=== PATIENT | female | born 2000 | race Hispanic/Latino ===

== ENCOUNTER 2019-06-28 02:53 | Emergency (ER) | payer OTHER ==
[~2019-06-28] VITALS: Ht 152.4 cm; Wt 79.4 kg
--- OUTSIDE RECORDS SUMMARY | 2019-06-28 02:56 | XMS REPORT ---
Author Author [facility] Address Unknown Phone Unavailable Care Team Providers Care Vp Patient Name Role Phone SARAVANAN ATKINSON PP Unavailable Nani ATKINSON Unavailable Unavailable Payers Payer Name Policy Type Policy Number Effective Date Expiration Date Problems This patient has no known problems. Allergies, Adverse Reactions, Alerts Allergy Name Allergy Type Status Severity Reaction(s) Onset Date Inactive Date Treating Clinician Comments No Known Allergies DA Active U 2018-04-11 00:00:00 No Known Allergies DA Active U 2018-04-02 00:00:00 No Known Allergies DA Active U 2018-03-17 00:00:00 Medications This patient has no known medications. Encounters Start Date/Time End Date/Time Encounter Type Admission Type Attending [facility] Care Department Encounter ID 2016-09-28 12:10:00 2016-09-28 12:10:00 Emergency E [facility] [id number] Results Test Description Test Time Test Comments Text Results Atomic Results Result Comments PLACENTA THIRD TRIMESTER 2018-04-13 18:33:00 RUN DATE: 04/14/18 [facility] PAGE 1 RUN TIME: 1104 Specimen Inquiry RUN USER: INTERFACE PATIENT: BETH DESOUZA LOC: [facility] U #: [id number] AGE/SX: ROOM: [age] RE04/11/18REG DR: Brain Kunz : 89 BED: A DIS: STATUS: ADM IN TLOC: SPEC #: [id number] RECD: 04/11/18 STATUS: MINI NATE #: [id number] ED: 04/11/18- [facility] DR: Brain Kunz MD ENTERED: 04/11/18 SP TYPE: PLACIII OTHR DR: ORDERED: LEVEL V SURGICA CODES: [id number] - PLACENTA, NOS PROCEDURES: LEVEL V SURGICA (Incomplete) TISSUES: PLACENTA, NOS - PLACENTA CLINICAL HISTORY 17 year old, 39+ weeks, , repeat section, GDM (kr) FINAL DIAGNOSIS Placenta, 39+ weeks gestational age, section: - third trimester placenta, 554 gms (75th percentile) with focal villous edema and small intervillous thrombus - trivascular umbilical cord and membranes free of inflammation Tissue code 1 CPT code(s): 88758 [facility] GROSS DESCRIPTION The specimen was received in a container, labeled with the patient's name, unit number and designated "placenta". The following attributes are observed: Cord insertion: 8 cm from ma rgin Cord length: 9 cm Number of vessels: 3 Cord color: Blue-corbin Other cord findings: None surface findings: Steel blue, wrinkled, glistening Vasculature: Displays unremarkable blood vasculature Membranes rupture site: 0 cm to margin Membrane color: Corbin Other membrane findings: Thickened and opaque The trimmed placental weight: 554 gm Disk measurement: 25 x 23 x 3 cm in greatest dimension Accessory lobes: None Maternal surface: Lobulated and intact CONTINUED ON NEXT PAGE RUN DATE: 04/14/18 [facility] PAGE 2 RUN TIME: 1104 Specimen Inquiry RUN USER: INTERFACE SPEC #: [id number] PATIENT: BETH DESOUZA #[id number] (Continued) GROSS DESCRIPTION (Continued) Parenchyma: Red, beefy, and spongy Parenchyma lesions: The parenchyma contains peripheral corbin, firm lesion measuring 0.8 cm and involving less than 5% of the total placental tissue (in D) Cassettes: A through D hz/kr 04/12/18 @ 8471 MICROSCOPIC DESCRIPTION The trivascular umbilical cord and membranes are unremarkable. The villi have a third trimester morphology and there is focal villous edema. A small intervillous thrombus is present. l sh Signed Shira Etienne MD 04/13/18 1833 END OF REPORT Hemogram LD 2016-09-16 14:50:00 WBC (test code=WBC) 16.3 K/cumm 4.4-10.5 RBC (test code=RBC) 3.80 M/cumm 3.75-5.20 Hemoglobin (test code=HGB) 9.2 g/dL 12.2-14.8 Hematocrit (test code=HCT) 28.5 % 36.5-44.4 MCV (test code=MCV) 75.1 fL 80.0-100.0 MCH (test code=MCH) 24.1 pg 27.0-32.5 MCHC (test code=MCHC) 32.1 g/dL 32.0-37.5 RDW (test code=RDW) 16.2 % 11.5-14.5 Platelet Count (test code=PLTCT) 166 K/cumm 140-440 MPV (test code=MPV) 8.3 fL Antibody Screen - [id number] 07:02:00* Test Item Value Reference Range Comments Antibody Screen (test code=ABSCR) Negative Blood Type and [id number] 06:47:00* Test Item Value Reference Range Comments ABO type (test code=ABO) AB Rh Type (test code=RH) Positive Blood [id number] 01:47:00* Test Item Value Reference Range Comments pH, Blood Gas (test code=BGPH) 7.307 pH Units 7.35-7.45 pCO2 (test code=PCO2) 53.3 mm Hg 35-45 pO2 (test code=PO2) 13.4 mm Hg 80-100 Bicarbonate (test code=HCO3) 26.6 mmol/L 22.0-26.0 O2 Saturation (test code=O2SAT) 19.5 % 80.0-100.0 FIO2 % (test code=FIO2) 21 % Patient Temperature (test code=PTTEMP) 37.0 Degrees Celcius Puncture Site (test code=PUNSITE) Umbilical Respiratory Rate (test code=RESP RATE) 0 RPR, [id number] 05:27:00* Test Item Value Reference Range Comments RPR (test code=RPR) Non-Reactive Non-Reactive Hep B Surface [id number] 17:41:00* Test Item Value Reference Range Comments Hep Bs Ag (test code=HBSAG) Nonreactive Non-Reactive CBC LD with [id number] 16:30:00* Test Item Value Reference Range Comments WBC (test code=WBC) 8.6 K/cumm 4.4-10.5 RBC (test code=RBC) 4.52 M/cumm 3.75-5.20 Hemoglobin (test code=HGB) 11.4 g/dL 12.2-14.8 Hematocrit (test code=HCT) 33.7 % 36.5-44.4 MCV (test code=MCV) 74.6 fL 80.0-100.0 MCH (test code=MCH) 25.3 pg 27.0-32.5 MCHC (test code=MCHC) 33.9 g/dL 32.0-37.5 RDW (test code=RDW) 16.3 % 11.5-14.5 Platelet Count (test code=PLTCT) 240 K/cumm 140-440 MPV (test code=MPV) 9.9 fL Diff Method (test code=DIFFM) Auto Neutrophil (test code=NEUT) 75.2 % 36.0-70.0 Lymphocyte (test code=LYMPH) 17.4 % 12.0-44.0 Monocyte (test code=MONO) 6.3 % 0.0-11.0 Eosinophil (test code=EOS) 0.7 % 0.0-7.0 Basophil (test code=BASO) 0.5 % 0.0-2.0 Neutro Abs (test code=ANEUT) 6.5 K/cumm 1.6-7.4 Lymph Abs (test code=ALYMPH) 1.5 K/cumm 0.5-4.6 Amite Abs (test code=AMONO) 0.5 K/cumm 0.0-1.2 Eos Abs (test code=AEOS) 0.1 K/cumm 0.0-0.7 Baso Abs (test code=ABASO) 0.0 K/cumm 0.0-0.2 Microcytosis (test code=MICRO) Slight
[2019-06-28 03:24] VITALS: BP 126/73
== END 2019-06-28 03:34 | disposition home or self-care (01) ==
LOC: ER 02:53
DX: H66.91 Otitis media, unspecified, right ear (principal)
CPT/HCPCS: 99282

== ENCOUNTER 2020-12-14 08:16 | Emergency (ER) | payer OTHER ==
[~2020-12-14] VITALS: Ht 152.4 cm; Wt 79.4 kg
== END 2020-12-14 10:19 | disposition home or self-care (01) ==
LOC: ER 08:26
DX: O20.0 Threatened abortion (principal)
CPT/HCPCS: 99283